=== PATIENT | female | born 1935 | race African-American/Black ===

== ENCOUNTER 2018-02-17 02:07 | Inpatient (IN) | payer OTHER ==
[~2018-02-17] VITALS: Ht 157.5 cm; Wt 46.5 kg
[2018-02-17] VITALS (9 sets, daily range): BP systolic 83–140; BP diastolic 55–71
--- NOTE | ~2018-02-17 | EKG ---
[address] [place] [address] ELECTROCARDIOGRAM REPORT Name: ISAMAR LO Room #: 204-P ADM IN M.R.#: [id number] Admission: 02/17/18 Attend Phys: Melinda Nazario MD Discharge: Date of : 33 Report #: [id number] THIS REPORT FOR: //name// [facility] ED Test Date: 2018-02-17 Test Time: 03:06:11 Pat Name: ISAMAR LO Department: Room: 204 Gender: F Loss Prevention Associate: JAMIE : [id number] Requested By: Althea Gee Order Number: [id number] MD: Raymundo Rodriguez Measurements Intervals [place] Rate: 96 P: 85 [place]: 132 QRS: 89 QRSD: 77 T: 266 QT: 457 QTc: 578 Interpretive Statements Limb lead reversal, recommend repeat tracing Sinus rhythm Poor R wave progression Nonspecific ST and T wave abnormality Prolonged QT interval No previous ECG available for comparison Electronically Signed On 02-17-2018 7:45:49 [employer] by Raymundo Rodriguez [email or web address] <ELECTRONICALLY SIGNED> By: Raymundo Rodriguez MD, [facility] 02/17/18 0745 5 5 Raymundo Rodriguez MD, [facility] /EPI
--- NOTE | ~2018-02-17 | HC ---
[facility] [place] [address] CONSULTATION Name: ISAMAR LO Room #: 204-P ADM IN M.R.#: [id number] Admission: 02/17/18 Attend Phys: Melinda Nazario MD Discharge: Date of : 33 Report #: [id number] THIS REPORT FOR: //name// CC: Melinda Nazario Pulmonary Consultation REFERRAL PHYSICIAN: Melinda Nazario MD REASON FOR REFERRAL: COPD. HISTORY OF PRESENT ILLNESS: The patient is an 82-year-old -[place] female who presents to emergency room with dyspnea. A pulmonary consultation was requested. The patient is a poor historian. Most of the history is obtained from the records. The patient has a history of COPD. She resides at a [facility]p. Earlier today, the patient noted to be dyspneic. She was brought to the emergency room. PAST MEDICAL HISTORY: Notable for COPD, otherwise incomplete. She has smoked in the past. PAST SURGICAL HISTORY: Unknown. ALLERGIES: None to medications. MEDICATIONS: List from the nursing facility includes Spiriva, Symbicort, melatonin, senna, Remeron. FAMILY HISTORY: Noncontributory. SOCIAL HISTORY: The patient has smoked in the past, but quit some time ago. She resides in a usp. REVIEW OF SYSTEMS: Notable for malnutrition, cardiomyopathy, marked emaciation. Otherwise unremarkable. PHYSICAL EXAMINATION: GENERAL: She is awake, appears frail, cachectic looking, cachectic-appearing female. She does not appear to be in distress. VITAL SIGNS: Temperature is 97.6 degrees Fahrenheit, pulse is 76, respiratory rate is 18, blood pressure 120/70 mmHg, saturation 100%. HEENT: Normocephalic, atraumatic. NECK: Supple, without any lymphadenopathy or thyromegaly. CHEST: Breath sounds are fair due to poor effort. No obvious wheezes or rales. [facility] [address] [place] [address] CONSULTATION Name: ISAMAR LO Room #: 204-P [facility] IN [facility]#: [id number] Admission: 02/17/18 Attend Phys: Melinda Nazario MD Discharge: Date of : 33 Report #: [id number] CARDIOVASCULAR: Heart sounds are distant. No murmurs or gallop. Pulses are 2+/4+ bilaterally. ABDOMEN: Soft, nontender, no organomegaly or masses felt. GENITOURINARY: Deferred. RECTAL: Deferred. EXTREMITIES: No cyanosis, clubbing, edema. MUSCULOSKELETAL: Notable for marked muscle atrophy. LABORATORY DATA: Chest x-ray shows hyperexpanded lung field, mild right lower lobe infiltrates. Electrolytes are normal except for bicarbonate of 38, BUN is 50, creatinine is 1.0. WBC is 17,800, hemoglobin 10.3. No evidence of significant bandemia. Platelets are normal. Arterial blood gas revealed pH 7.27, pCO2 of 91, pO2 84 on 6 L of O2. IMPRESSION: 1. Furqp-ke-lqsddwk hypercapnic hypoxic respiratory failure in this 82-year-old -[place] female. I doubt this is due to pneumonia along with chronic obstructive pulmonary disease exacerbation. 2. Right lower lobe infiltrate, suspect pneumonia, probable aspiration. We also need to consider nosocomial infection, as she resides in a usp. 3. Chronic obstructive pulmonary disease, appears to be severe impairment with chronic hypercapnic respiratory insufficiency. 4. Suspected severe malnutrition with cachexia. 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 RECOMMENDATION: I would recommend broad-spectrum antibiotics, corticosteroids, bronchodilators. DVT and GI prophylaxis is recommended. May need to address level of care in this patient with what appears to be severe comorbid, severe pulmonary impairment. Thank you for the consultation. <ELECTRONICALLY SIGNED> By: Parveen Huang MD 02/18/18 1805 [id number] [id number] Parveen Huang MD /nt
[2018-02-17 02:52] LABS: ABSOLUTE NEUTROPHILS 16.2 thou/uL (1.4-8.2); BASOPHILS 0.1 % (0.0-2.0); EOSINOPHILS 0.2 % (0.0-3.0); HEMATOCRIT 33.6 % (37.0-47.0); HEMOGLOBIN 10.3 gm/dL (12.0-15.0); LYMPHOCYTES 2.6 % (24.0-44.0); MCH 25.1 pg (26.0-34.0); MCHC 30.6 g/dL (28.0-37.0); MCV 82.2 fL (80.0-100.0); MONOCYTES 6.4 % (1.0-8.0); PLATELET COUNT 182 thou/uL (150-400); POLYS 90.7 % (36.0-66.0); RBC 4.09 mil/uL (4.20-5.00); RDW 16.4 % (10.5-14.5); WBC 17.8 thou/uL (4.0-11.0)
[2018-02-17 03:02] LABS: ANION GAP 2 mmol/L (7-16); BUN 50 mg/dL (7-18); CALCIUM 9.4 mg/dL (8.5-10.1); CHLORIDE 103 mmol/L (98-107); CO2 38 mmol/L (21-32); GLUCOSE 89 mg/dL (74-106); POTASSIUM 4.2 mmol/L (3.5-5.1); SODIUM 143 mmol/L (136-145)
[2018-02-17 03:04] LABS: TROPONIN-I <0.06 ng/mL (<0.06)
[2018-02-17 03:20] LABS: HCO3 41.9 mmol/L (22.0-26.0); PO2 84.6 mmHg (80.0-100.0); sO2 94.4 % (92.0-98.0)
[2018-02-17 03:21] LABS: PCO2 91.6 mmHg (35.0-45.0); pH 7.278 (7.360-7.450)
[2018-02-17] MEDS ORDERED: SYMBICORT160 MCG/4. INH (03:35)
[2018-02-17] MEDS ORDERED: SPIRIVA INH (03:35)
[2018-02-17] MEDS ORDERED: SENNA8.6 MG PO (03:36)
[2018-02-17] MEDS ORDERED: MELATONIN3 MG PO (03:36)
[2018-02-17] MEDS ORDERED: REMERON15 MG PO (03:37)
[2018-02-17 04:20] LABS: BE(vivo) 10.6 mmol/L (-2 to +3); HCO3 39.5 mmol/L (22.0-26.0); PO2 72.4 mmHg (80.0-100.0); sO2 92.3 % (92.0-98.0)
[2018-02-17 04:21] LABS: PCO2 80.2 mmHg (35.0-45.0)
[2018-02-18 00:36] VITALS: BP 105/69
[2018-02-18 03:09] LABS: HEMATOCRIT 32.5 % (37.0-47.0); HEMOGLOBIN 9.7 gm/dL (12.0-15.0); MCH 24.9 pg (26.0-34.0); MCHC 29.9 g/dL (28.0-37.0); MCV 83.3 fL (80.0-100.0); RBC 3.9 mil/uL (4.20-5.00); RDW 16.8 % (10.5-14.5); WBC 11.3 thou/uL (4.0-11.0)
[2018-02-18 03:10] LABS: CREATININE 0.8 mg/dL (0.6-1.0); POTASSIUM 4.8 mmol/L (3.5-5.1)
[2018-02-18 05:56] VITALS: BP 101/68
[2018-02-18 08:00] VITALS: BP 93/52
[2018-02-18 11:46] VITALS: BP 99/55
[2018-02-18 16:00] VITALS: BP 101/67
[2018-02-18 19:30] VITALS: BP 92/60
[2018-02-19 03:43] LABS: CALCIUM 8.9 mg/dL (8.5-10.1); CREATININE 0.8 mg/dL (0.6-1.0); POTASSIUM 5.5 mmol/L (3.5-5.1)
[2018-02-19 04:52] VITALS: BP 130/96
[2018-02-19 07:15] VITALS: BP 143/77
[2018-02-19 11:20] VITALS: BP 102/57
[2018-02-19 15:40] VITALS: BP 95/50
[2018-02-19 19:37] VITALS: BP 116/57
[2018-02-20 04:31] VITALS: BP 134/80
[2018-02-20 04:33] LABS: HEMATOCRIT 29.5 % (37.0-47.0); HEMOGLOBIN 9.3 gm/dL (12.0-15.0); MCH 25.9 pg (26.0-34.0); MCHC 31.6 g/dL (28.0-37.0); RBC 3.59 mil/uL (4.20-5.00); RDW 16.7 % (10.5-14.5); WBC 10.1 thou/uL (4.0-11.0)
[2018-02-20 04:43] LABS: CREATININE 0.8 mg/dL (0.6-1.0); POTASSIUM 4.9 mmol/L (3.5-5.1)
[2018-02-20 07:00] VITALS: BP 128/73
[2018-02-20 11:30] VITALS: BP 132/69
[2018-02-20 13:16] LABS: BE(vivo) 3.6 mmol/L (-2 to +3); HCO3 30.5 mmol/L (22.0-26.0); PCO2 58.6 mmHg (35.0-45.0); PO2 59.8 mmHg (80.0-100.0); pH 7.334 (7.360-7.450); sO2 88.7 % (92.0-98.0)
[2018-02-20 15:30] VITALS: BP 157/51
[2018-02-20 15:35] VITALS: BP 109/49
[2018-02-20 20:29] VITALS: BP 116/67
[2018-02-21 04:08] VITALS: BP 109/67
[2018-02-21 07:15] VITALS: BP 188/77
[2018-02-21 11:00] VITALS: BP 104/60
[2018-02-21 15:35] VITALS: BP 104/6; BP 142/67
[2018-02-21 19:25] VITALS: BP 126/78
[2018-02-22 05:44] VITALS: BP 153/69
[2018-02-22 07:15] VITALS: BP 147/74
[2018-02-22 11:30] VITALS: BP 133/77
[2018-02-22 16:00] VITALS: BP 132/70
[2018-02-22 19:39] VITALS: BP 127/68
[2018-02-23 03:42] LABS: HEMATOCRIT 31.5 % (37.0-47.0); HEMOGLOBIN 9.4 gm/dL (12.0-15.0); MCH 24.7 pg (26.0-34.0); MCV 82.2 fL (80.0-100.0); RBC 3.83 mil/uL (4.20-5.00); RDW 16.7 % (10.5-14.5); WBC 8.4 thou/uL (4.0-11.0)
[2018-02-23 03:43] VITALS: BP 142/86
[2018-02-23 03:48] LABS: CALCIUM 9.2 mg/dL (8.5-10.1); CREATININE 0.7 mg/dL (0.6-1.0); POTASSIUM 4.3 mmol/L (3.5-5.1)
[2018-02-23 07:21] LABS: BE(vivo) 13.8 mmol/L (-2 to +3); HCO3 40.8 mmol/L (22.0-26.0); PCO2 67.2 mmHg (35.0-45.0); PO2 69.5 mmHg (80.0-100.0); pH 7.401 (7.360-7.450); sO2 93.3 % (92.0-98.0)
[2018-02-23 07:25] VITALS: BP 120/65
[2018-02-23 11:25] VITALS: BP 137/75
[2018-02-23 15:50] VITALS: BP 131/74
[2018-02-23 19:29] VITALS: BP 90/62
[2018-02-24 03:40] VITALS: BP 79/50
[2018-02-24 03:43] VITALS: BP 87/63
[2018-02-24 07:08] LABS: BE(vivo) 13.2 mmol/L (-2 to +3); HCO3 40.8 mmol/L (22.0-26.0); PCO2 72.4 mmHg (35.0-45.0); pH 7.369 (7.360-7.450); sO2 91.5 % (92.0-98.0)
[2018-02-24 07:40] VITALS: BP 113/68
[2018-02-24 11:20] VITALS: BP 97/66
[2018-02-24 15:45] VITALS: BP 102/65
[2018-02-24 20:31] VITALS: BP 108/73
[2018-02-25 04:37] VITALS: BP 95/65
[2018-02-25 05:01] LABS: CALCIUM 8.8 mg/dL (8.5-10.1); CREATININE 0.7 mg/dL (0.6-1.0); POTASSIUM 4.5 mmol/L (3.5-5.1)
[2018-02-25 08:22] LABS: BE(vivo) 11.9 mmol/L (-2 to +3); HCO3 37.5 mmol/L (22.0-26.0); PCO2 55.2 mmHg (35.0-45.0); PO2 75.1 mmHg (80.0-100.0); sO2 95.3 % (92.0-98.0)
[2018-02-25 09:35] VITALS: BP 122/70
[2018-02-25] MEDS ORDERED: ZOSYN 3.373.375 GM/1 IV (09:44)
[2018-02-25] MEDS ORDERED: IPRAT-ALBUT 0.5-3 ML INH (09:46)
[2018-02-25] MEDS ORDERED: PREDNISONE 20 M20 M1 PO (09:48)
[2018-02-25 10:58] VITALS: BP 134/83
[2018-02-25 14:26] VITALS: BP 95/61
[2018-02-25 19:35] VITALS: BP 102/66
[2018-02-26 07:14] VITALS: BP 112/71
[2018-02-26 11:00] VITALS: BP 103/60
[2018-02-26 14:49] VITALS: BP 121/78
== END 2018-02-26 19:30 | DRG 193 ==
LOC: ER 02:07 → EDBD 02:07 → EROBS 04:36 → 2N 04:36
PROVIDERS: Emergency Medicine; Internal Medicine; Internal Medicine Pulmonary Disease
DX: J18.9 Pneumonia, unspecified organism (principal); J96.21 Acute and chronic respiratory failure with hypoxia; E43 Unspecified severe protein-calorie malnutrition; J96.22 Acute and chronic respiratory failure with hypercapnia; J44.1 Chronic obstructive pulmonary disease with (acute) exacerbation; Z68.1 Body mass index [BMI] 19.9 or less, adult; J44.0 Chronic obstructive pulmonary disease with (acute) lower respiratory infection; Z66 Do not resuscitate; E87.5 Hyperkalemia; F03.90 Unspecified dementia, unspecified severity, without behavioral disturbance, psychotic disturbance, mood disturbance, and anxiety; R62.7 Adult failure to thrive; Z87.891 Personal history of nicotine dependence; Z79.899 Other long term (current) drug therapy
CPT/HCPCS: 10081; 27000

== ENCOUNTER 2018-06-03 04:06 | Emergency (ER) | payer OTHER ==
[~2018-06-03] VITALS: Ht 152.4 cm; Wt 49.9 kg
[~2018-06-03 04:06] MED LIST: IPRAT-ALBUT 0.5-3 ML INH; MELATONIN3 MG PO; PREDNISONE 20 M20 M1 PO; REMERON15 MG PO; SENNA8.6 MG PO; SPIRIVA INH; SYMBICORT160 MCG/4. INH; ZOSYN 3.373.375 GM/1 IV
[2018-06-03 04:48] LABS: HEMATOCRIT 27.6 % (37.0-47.0); HEMOGLOBIN 8.2 gm/dL (12.0-15.0)
[2018-06-03 07:39] VITALS: BP 97/61
== END 2018-06-03 07:40 | disposition home or self-care (01) ==
LOC: ER 04:06
PROVIDERS: Emergency Medicine
DX: R04.0 Epistaxis (principal); J44.9 Chronic obstructive pulmonary disease, unspecified